=== PATIENT | male | born 1995 | race Hispanic/Latino ===

== ENCOUNTER 2020-01-31 14:11 | Emergency (ER) | payer OTHER ==
[2020-01-31] MEDS ORDERED: KETOROLAC TROMETHAMINE 60 MG/2 ML VIAL ONE (14:45)
[2020-01-31] MEDS ORDERED: CYCLOBENZAPRINE HCL 10 MG TABLET ONE (14:46)
== END 2020-01-31 15:37 | disposition home or self-care (01) ==
LOC: EDH 14:11
DX: M54.5 Low back pain (principal); Z87.891 Personal history of nicotine dependence
CPT/HCPCS: 96372; 99283; J1885